=== PATIENT | female | born 1985 | race African-American/Black ===

== ENCOUNTER 2018-08-31 13:32 | Emergency (ER) | payer OTHER ==
--- NOTE | 2018-08-31 13:40 | PDOC ---
History of Present Illness - General Chief Complaint: Pain Stated Complaint: LEFT LEG BURNING Time Seen by Provider: 08/31/18 13:35 - History of Present Illness Initial Comments: 08/31/18 13:35 32 yo F with no significant pmh who p/w left calf pain. Patient reports two months of sensory disturbance in left calf, described as warm sensation, lasting for seconds to minutes and resolving spontaneously. Patient reports symptom onset with sitting down. Denies leg swelling. Denies symptoms with activity or exertion. Denies recent trauma, or surgery within 6 months, malignancy, h/o DVT/PE. On OCP. Patient denies vision change, palpitations, cough, wheezing, N/V, F,C, CP, SOB, urinary complaints, abdominal pain, diarrhea, constipation, BPR, hematruia, lightheadedness, weakness. PMHx: as noted above ROS: as noted SHx: Denies Etoh, tobacco, IVDA. Allergies: NKDA Past History - Past Medical History Allergies/Adverse Reactions: Allergies Allergy/AdvReac Type Severity Reaction Status Date / Time No Known Allergies Allergy Verified 08/31/18 13:33 Home Medications: Ambulatory Orders Norethindrone AC-Eth Estradiol [Junel] 1 each PO DAILY 08/31/18 Anemia: No Asthma: No Cancer: No Cardiac Disorders: No CVA: No COPD: No CHF: No Dementia: No Diabetes: No GI Disorders: No Disorders: No HTN: No Hypercholesterolemia: No Liver Disease: No Seizures: No Thyroid Disease: No - Surgical History Abdominal Surgery: No Appendectomy: No Cardiac Surgery: No Cholecystectomy: No Lung Surgery: No Neurologic Surgery: No Orthopedic Surgery: No - Suicide/Smoking/Psychosocial Hx Smoking History: Never smoked Have you smoked in the past 12 months: No Hx Alcohol Use: Yes (occasional) Substance Use Type: Alcohol Hx Substance Use Treatment: No Review of Systems - Review of Systems Comments:: 08/31/18 13:36 GENERAL/CONSTITUTIONAL: No fever or chills. No weakness. HEAD, EYES, EARS, NOSE AND THROAT: No change in vision. No ear pain or discharge. No sore throat. CARDIOVASCULAR: No chest pain or shortness of breath RESPIRATORY: No cough, wheezing, or hemoptysis. GASTROINTESTINAL: No nausea, vomiting, diarrhea or constipation. GENITOURINARY: No dysuria, frequency, or change in urination. MUSCULOSKELETAL: No joint or muscle swelling or pain. No neck or back pain. SKIN: No rash NEUROLOGIC: + Change in sensation/ anterior thigh. No headache, vertigo, loss of consciousness, or change in strengtn. ENDOCRINE: No increased thirst. No abnormal weight change HEMATOLOGIC/LYMPHATIC: No anemia, easy bleeding, or history of blood clots. ALLERGIC/IMMUNOLOGIC: No hives or skin allergy. *Physical Exam - Physical Exam Comments: 08/31/18 13:36 GENERAL: Awake, alert, and fully oriented, in no acute distress HEAD: No signs of trauma, normocephalic, atraumatic EYES: PERRLA, EOMI, sclera anicteric, conjunctiva clear ENT: Hearing grossly normal, nares patent, oropharynx clear without exudates. Moist mucosa NECK: Normal ROM, supple, no lymphadenopathy, JVD, or masses LUNGS: No distress, speaks full sentences, clear to auscultation bilaterally HEART: Regular rate and rhythm, normal S1 and S2, no murmurs, rubs or gallops, peripheral pulses normal and equal bilaterally. EXTREMITIES : Normal inspection, Normal range of motion, no edema. No clubbing or cyanosis. NEUROLOGICAL: Cranial nerves II through XII grossly intact. Normal speech, normal gait, no focal sensorimotor deficits SKIN: Warm, Dry, normal turgor, no rashes or lesions noted Medical Decision Making - Medical Decision Making 08/31/18 13:38 32 yo F with no significant pmh who p/w LLE calf pain. VSS, AF, A&Ox3. Physical exam unremarkable. BL LE neurovascularly intact. No evidence of celliulitis, nec. fasc, or skin change. Low suspicion peripheral arterial disease, limb ischemia, or compartment syndrome. Low risk DVT per [facility] Criteria. ED Course: LLE DUPLEX Patient counseled on symptom management. 08/31/18 15:43 DUPLEX: No evidence of DVT or thrombophlebitis Stable for d/c with return precautions. Advised to f/u with PMD. *DC/Admit/Observation/Transfer Diagnosis at time of Disposition: Paresthesia - Discharge Dispostion Condition at time of disposition: Stable Decision to Admit order: No - Referrals Referrals: Larry Dorsey MD [Staff Physician] - - Patient Instructions Printed Discharge Instructions: DI for Leg Pain Additional Instructions: Please return to the emergency department with any new or worsening symptoms or concerns. Please follow up with your primary care physician within 72 hours. - Post Discharge Activity Forms/Work/School Notes: Back to Work - Attestations Physician Attestion: 08/31/18 13:36 I attest to the information provided in this note.
[2018-08-31 14:10] VITALS: BP 101/70; PULSE 75; TEMP 98.9; BMI 20.5
--- NOTE | 2018-08-31 14:37 | PDOC ---
Attending Attestation - Resident Resident Name: SriniYoshiFabian - ED Attending Attestation I have performed the following: I have examined & evaluated the patient, The case was reviewed & discussed with the resident, I agree w/resident's findings & plan - HPI HPI: 08/31/18 14:37 32 yo F with no significant pmh who p/w left calf pain. Patient reports two months of sensory disturbance in left calf, described as warm sensation, lasting for seconds to minutes and resolving spontaneously. no trauma no s/s infection/fever. no weakness. no gait disturbance. 08/31/18 15:49 - Physicial Exam PE: 08/31/18 15:49 General: NAD, well appearing Vascular: 2+ DP pulses symmetric and equal. Focused MSK/Neuro Exam notable for soft compartments, Cap refill <2 sec. Proximal and distal strength 5/5, slash trimmer strength 5/5 - equal and symmetric. Plantar flexion and dorsiflexion 5/5. FROM. Sensation grossly intact to light touch. No calf tenderness. Skin: color normal color, warm and well perfused. - Medical Decision Making 08/31/18 15:48 DDx extremity pain: DVT, superficial thrombophlebitis, msk strain, muscle tear, neuropathy. Considered but clinically doubt based on HPI and PE: compartment syndrome or ischemic limb based on history and physical exam. hpi as documented VS wnll. Duplex neg for DVT or cyst or superficial thrombophlebitis chronicity of paresthesias x 2 months, unclear etiology PCP followup, return precautions discussed if persistent sx, pain/swelling/paresthesias, calf tenderness, repeat US in 1 week. clinical suspicion remains low.
== END 2018-08-31 15:57 | disposition home or self-care (01) ==
LOC: FER 13:32
DX: R20.2 Paresthesia of skin (principal)
CPT/HCPCS: 93971-TC; 99282-25